=== PATIENT | female | born 1945 | race Caucasian/White ===

== ENCOUNTER → 2016-08-30 | Outpatient (CLI) | payer BC ==
[~2016-08-30] MED LIST: ASPI-435 PO; CETI10TA84 PO; CRS/10 PO; LISI-787 PO; LSN/10125 PO; MULT1CAP7 PO; OMEGCAP2 PO; PRLSR20 PO; SERT-234 PO
[2016-08-30 12:44] LABS: BASO % 0.4 %; BASO ABS # 0.04 K/uL (0-0.2); COMPLETE YES; EOS % 1.6 %; HEMATOCRIT 41.4 % (37-47); IG% 0.2 %; LYMPH % 18.9 %; LYMPH ABS # 2.11 K/uL (1.2-3.4); MEAN CELL VOLUME 96.5 fL (80-100); MEAN CORPUSCULAR HEMOGLOBIN 32.2 pg (25-34); MEAN CORPUSCULAR HGB CONC 33.3 g/dl (32-36); MONO % 6.9 %; PLATELET COUNT 291 K/uL (130-400); RED BLOOD COUNT 4.29 M/uL (4.2-5.4); WHITE BLOOD COUNT 11.16 K/uL (4.8-10.8)
[2016-08-30 13:05] LABS: ALT/SGPT 17 U/L (12-78); AST/SGOT 15 U/L (15-37); BLOOD UREA NITROGEN 17 mg/dl (7-18); CARBON DIOXIDE 25 mmol/L (21-32); CHLORIDE 107 mmol/L (98-107); GLUCOSE 102 mg/dl (70-99); POTASSIUM 4.2 mmol/L (3.5-5.1); SODIUM 141 mmol/L (136-145)
[2016-08-30 13:06] LABS: ESTIMATED AVERAGE GLUCOSE 137 mg/dl; HA1C FLAG Normal (Normal)
[2016-08-30 13:16] LABS: ALB/GLOB RATIO 0.9 (0.9-2); ALKALINE PHOSPHATASE 75 U/L (45-117)
--- NOTE | 2016-09-03 09:30 | CODING QUERY MEDICAL NECESSITY ---
SUPPORTING DIAGNOSIS NEEDED Dr. Lebron, A supporting diagnosis is required for the test/procedure performed on this patient in order for us to be reimbursed by the patient's insurance. Please provide a supporting diagnosis for the following test/procedure listed below next to the test name along with your signature. *If there is no additional diagnosis for this patient that would support the following test/procedure please document that below next to the test/procedure. Test(s)/Procedure(s) that require a supporting diagnosis: * [id number] GLYCATED HEMOGLOBIN DIAGNOSIS: DATE OF SERVICE: 08/30/16 Provider Signature: Date: Thank you Adriano Wiggins [facility] Information Management Once completed, please kindly fax back to [phone] For questions please call [phone]
== END | disposition home or self-care (01) ==
LOC: C.LAB 10:21
PROVIDERS: ATTEND Internal Medicine
DX: F32.9 Major depressive disorder, single episode, unspecified (principal); R26.9 Unspecified abnormalities of gait and mobility; L28.0 Lichen simplex chronicus; G31.84 Mild cognitive impairment of uncertain or unknown etiology; E11.9 Type 2 diabetes mellitus without complications

== ENCOUNTER → 2016-08-31 | Outpatient (CLI) | payer BC ==
--- NOTE | 2016-08-31 11:48 | DIAGNOSTIC IMAGING REPORT ---
MRI OF THE BRAIN WITHOUT CONTRAST CLINICAL HISTORY: Left hemiplegia. Mild cognitive impairment. COMPARISON STUDY: MRI of the brain January 23, 2013. TECHNIQUE: Utilizing a 1.5 Mansi magnet and dedicated coil, multiplanar, multiecho imaging of the brain was performed without IV contrast. FINDINGS: There are no areas of restricted diffusion. No acute intracranial hemorrhage, midline shift or mass effect is present. Mild age-appropriate atrophy is noted. Basilar cisterns are patent. There are no extra axial collections. Scattered white matter T2 hyperintense foci have minimally increased since prior exam and suggest small vessel disease. No intracranial masses are identified on this unenhanced examination. Calvarial signal is normal. A 2.2 x 1.3 cm right parotid gland lesion is similar to prior exam of January 23, 2013. This lesion is T1 and T2 hypointense. Orbits and sinuses are unremarkable. IMPRESSION: 1. No acute intracranial findings. 2. Mild atrophy and moderate small vessel disease. 3. No change in a 2.2 cm right parotid gland lesion since MRI of January 23, 2013. Electronically signed by: Aakash Momin M.D. 08/31/2016 11:46 AM Dictated Date/Time: 08/31/2016 11:41 AM
== END | disposition home or self-care (01) ==
LOC: C.MRIBC 10:48
PROVIDERS: ATTEND Psychiatry & Neurology Neurology
DX: G31.84 Mild cognitive impairment of uncertain or unknown etiology (principal); G81.94 Hemiplegia, unspecified affecting left nondominant side

== ENCOUNTER 2016-12-21 03:16 | Emergency (ER) | payer BC ==
[~2016-12-21] VITALS: Ht 157.5 cm; Wt 65.0 kg
[~2016-12-21 03:16] MED LIST changes: -LISI-787 PO
[2016-12-21 03:23] VITALS: TEMP 36.7; Ht 157.5 cm; Wt 65.0 kg
[2016-12-21] MEDS ORDERED: LIDOCAINE/EPINEPHRINE 1% 20 ML VIAL INFIL ONE (04:00)
--- NOTE | 2016-12-21 05:50 | EMERGENCY ROOM VISIT NOTE ---
History First contact with patient: 03:28 Chief Complaint: FALL Stated Complaint: FALL/HEAD INJURY History of Present Illness The patient is a 71 year old female who presents to the Emergency Room with complaints of a head injury. The patient states that she woke up approximately 2 hours ago and was walking to the bathroom when she tripped over a dog gate and fell backward, striking her head on the corner of a wall. She called 911 due to a significant amount of bleeding. She reports a mild headache rated 1/ 10. There was no loss of consciousness. She denies any nausea/vomiting, numbness, weakness, confusion, blurred vision or slurred speech. Her tetanus is up-to-date. Review of Systems A complete 10 point review of systems was reviewed with the patient with pertinent positives and negatives as per history of present illness. All else were negative. Family History No pertinent family history Social History Smoking Status: Never Smoker Drug Use: none Marital Status: Housing Status: lives with family Occupation Status: retired Current/Historical Medications Scheduled Aspirin (Aspirin 81), 81 MG PO DAILY Cetirizine (Zyrtec), 10 MG PO DAILY Lisinopril/Hctz (Zestoretic 20MG/12.5MG), 1 TAB PO DAILY Multiple Vitamins W/ Minerals (Multi For Her 50+), 1 CAP PO DAILY [place]-3 Fatty Acids (Fish Oil), 1 CAP PO DAILY Omeprazole (Prilosec), 20 MG PO DAILY Rosuvastatin Calcium (Crestor), 10 MG PO DAILY Sertraline (Zoloft), 150 MG PO DAILY Physical Exam Vital Signs Date Time Temp Pulse Resp B/P (MAP) Pulse Ox O2 Delivery O2 Flow Rate FiO2 12/21/16 06:08 88 20 112/74 99 12/21/16 04:34 91 20 119/70 93 Room Air 12/21/16 03:23 36.7 96 20 131/75 92 Room Air Physical Exam VITALS: Vitals are noted on the nurse's note and reviewed by myself. Vital signs stable. GENERAL: This is a 31-year-old female, in no acute distress, nondiaphoretic, well-developed well-nourished. SKIN: There is a 3 cm laceration to the right occipital region of the scalp. There is no active bleeding. HEAD: Scalp laceration as described above. Normocephalic atraumatic. EARS: External auditory canals clear, tympanic membranes pearly diaz without erythema or effusion bilaterally. No hemotympanum. EYES: Pupils equal round and reactive to light and accommodation. Extraocular movements intact. NECK: Supple without nuchal rigidity. Cervical spine is nontender. HEART: Regular rate and rhythm without murmurs gallops or rubs. LUNGS: Clear to auscultation bilaterally without wheezes, rales or rhonchi. MUSCULOSKELETAL: No deformities. Full range of motion throughout. NEURO: Patient was alert and oriented to person place and time. Normal sensation to light and sharp touch. No focal neurological deficits. Medical Decision & Procedures ER Provider Diagnostic Interpretation: CT HEAD: No intracranial hemorrhage, mass effect or calvarial fracture Ventricles are within limits and midline Volume loss, atrophy Visualized paranasal sinuses, mastoid and orbits are within limits CT C SPINE: No fracture or malalignment Multilevel spondylosis/discogenic change Pulmonary emphysema visualized apices Radiologist: Beck Kern MD Procedure Verbal consent was obtained prior to performing the procedure. 4 cc of lidocaine with epinephrine was used to anesthetize the scalp laceration. The wound was cleansed and prepped in the typical sterile fashion utilizing normal saline and Betadine. The wound was sterilely draped. The wound was copiously irrigated with normal saline and Betadine. The wound was closed using 3 kacy with the wound edges being well approximated. Patient tolerated the procedure well. No complications were met. ED Course The patient was evaluated as above. CT of the head and C spine were performed and read by radiology as above. Laceration repair was performed as noted above. Discharge instructions were reviewed with the patient. The patient verbalized understanding of my assessment and treatment plan and was discharged home in good condition. Medical Decision Differential diagnosis includes laceration, contusion, intracranial hemorrhage, concussion, among others. The patient is a 71-year-old female who presents today for evaluation of a mechanical fall. Neuro exam is unremarkable. Patient has no concerning symptoms. CT of the head and C-spine were performed and show no acute findings. Scalp laceration was repaired. Staple care instructions were discussed with the patient. She will follow-up with her primary care provider this week. She verbalized understanding and was discharged home in good condition. Medication Reconcilliation Current Medication List: was personally reviewed by [place] Blood Pressure Screening Patient's blood pressure: Normal blood pressure Impression Primary Impression: Head injury Additional Impressions: Fall Scalp laceration Departure Information Dispostion Home / Self-Care Condition GOOD Referrals William Lebron M.D. (PCP) Patient Instructions [facility] Additional Instructions You have received 3 kacy on your scalp. These kacy are NOT dissolvable and WILL need to be removed by a health care provider in 10 days. You can return to the Emergency Department or contact your Primary Care Provider to have these kacy removed. Proper wound care is essential for adequate wound healing and infection prevention. You can shower and clean the wound with soap and water. Do scour over the wound, pat dry with a towel. Do not submerse the wound until the kacy have been removed. You can use an antibiotic ointment with a dressing over the wound for the next 3-4 days. After this time you may leave the wound dry and open to the air. If crust develops over the wound you can use a Q-tip to apply a 1:1 peroxide:water solution to clean the wound. Look for signs of infection of the wound including: increased pain, swelling, foul discharge, streaking, or increased temperature. If any of these are noticed you should return to the Emergency Department for further assessment and treatment. As with any laceration you may have received nerve damage to the surrounding tissues. This damage may or may not be permanent. For pain control, you can use the following tgob-uia-cuczugy medicines (if >12 yo): - Regular strength (325mg/tab) Tylenol (acetaminophen) 2 tabs every 4-6 hours as needed. Do not exceed 12 tablets in a 24 hour period. Avoid taking more than 4 grams (4000 mg) of Tylenol per day. This includes any other sources of acetaminophen you may take on a regular basis. - Regular strength (200 mg/tab) Advil (ibuprofen) 1-2 tabs every 4-6 hours as needed. Do not exceed a dose of 3200 mg per day. Return to the emergency department if your symptoms worsen despite treatment course outlined above. Problem Qualifiers Primary Impression: Head injury Encounter type: initial encounter Qualified Codes: S09.90XA - Unspecified injury of head, initial encounter Additional Impressions: Fall Encounter type: initial encounter Qualified Codes: W19.XXXA - Unspecified fall, initial encounter Scalp laceration Encounter type: initial encounter Qualified Codes: S01.01XA - Laceration without foreign body of scalp, initial encounter
[2016-12-21] MEDS ORDERED: LISI-787 PO (05:56)
[2016-12-21 06:08] VITALS: BP 112/74; PULSE 88; O2SAT 99
--- NOTE | 2016-12-21 06:15 | DIAGNOSTIC IMAGING REPORT ---
HEAD WITHOUT CONTRAST (CT) CT DOSE: HISTORY: Trauma. Mental status change. head injury TECHNIQUE: Multiaxial CT images of the head were performed without the use of intravenous contrast. A dose lowering technique was utilized adhering to the principles of ALARA. Comparison: None. Findings: The paranasal sinuses and mastoid air cells are clear. The calvarium and skull base are intact. The ventricles and sulci are within normal limits. There is no mass, hematoma, midline shift, or acute infarct. Impression: No acute intracranial abnormality. The above report was generated using voice recognition software. It may contain grammatical, syntax or spelling errors. Electronically signed by: Terry Lawton M.D. 12/21/2016 6:14 AM Dictated Date/Time: 12/21/2016 6:13 AM
--- NOTE | 2016-12-21 06:17 | DIAGNOSTIC IMAGING REPORT ---
CERVICAL SPINE W/O CT DOSE: 947.06 mGy.cm HISTORY: Trauma. Pain. head injury TECHNIQUE: Multiaxial CT images of the cervical spine were performed and reformatted in the sagittal and coronal plane without the use of contrast. A dose lowering technique was utilized adhering to the principles of ALARA. COMPARISON: None. FINDINGS: Moderate multilevel degenerative disc changes throughout. Vertebral body stature is unremarkable. No evidence for compression deformity. Anterior and to a lesser extent posterior osteophytic changes throughout. Degenerative changes C1-C2 complex. Prevertebral soft tissues are unremarkable. IMPRESSION: No fractures within the cervical spine. Moderate degenerative change. The above report was generated using voice recognition software. It may contain grammatical, syntax or spelling errors. Electronically signed by: Terry Lawton M.D. 12/21/2016 6:16 AM Dictated Date/Time: 12/21/2016 6:14 AM
== END 2016-12-21 06:10 | disposition home or self-care (01) ==
LOC: EDBD 03:16 → C.EDB 03:17
DX: S01.01XA Laceration without foreign body of scalp, initial encounter (principal); W18.09XA Striking against other object with subsequent fall, initial encounter; Z79.82 Long term (current) use of aspirin; Z79.899 Other long term (current) drug therapy

== ENCOUNTER → 2017-01-20 | Outpatient (CLI) | payer BC ==
[~2017-01-20] MED LIST changes: +LISI-787 PO; -LSN/10125 PO
--- NOTE | 2017-01-20 10:59 | DIAGNOSTIC IMAGING REPORT ---
L HIP UNILATERAL 2 VIEWS CLINICAL HISTORY: R26.9 Abnormality of gait and [id number] pain COMPARISON: None. DISCUSSION: Moderate degenerative narrowing left hip joint space. Moderate degenerative sclerosis of the acetabular margins. Calcific components at the greater trochanter of the left hip consistent with calcific trochanteric bursitis. There is no evidence for fracture or dislocation. No evidence for acetabular protrusion. There is no evidence for soft tissue swelling. IMPRESSION: Moderate to rather significant degenerative change left hip. Calcific trochanteric bursitis. The above report was generated using voice recognition software. It may contain grammatical, syntax or spelling errors. Electronically signed by: Terry Lawton M.D. 01/20/2017 10:58 AM Dictated Date/Time: 01/20/2017 10:57 AM
--- NOTE | 2017-01-20 11:00 | DIAGNOSTIC IMAGING REPORT ---
LEFT KNEE 2 VIEWS CLINICAL HISTORY: Gait abnormality. Fall with left knee pain. FINDINGS: AP and lateral views of the left knee are obtained. No prior studies are available for comparison at the time of dictation. The skeletal structures are osteopenic. No fracture is seen. There is mild tricompartmental degenerative joint space narrowing, greatest at the patellofemoral articulation. There is a large patellar enthesophyte. No joint effusion is seen. Mild prepatellar soft tissue swelling is noted. Large venous varicosities are present within the medial soft tissues. There is advanced after carotid calcification of the popliteal artery. IMPRESSION: Osteopenia and mild degenerative change as above. No acute bony abnormality is identified. Electronically signed by: Cal Dhillon M.D. 01/20/2017 10:59 AM Dictated Date/Time: 01/20/2017 10:57 AM
--- NOTE | 2017-01-20 11:02 | DIAGNOSTIC IMAGING REPORT ---
L SHOULDER MIN 2 VIEWS ROUTINE CLINICAL HISTORY: R29.6 Repeated [id number] trauma. Pain. COMPARISON: None. DISCUSSION: Generalized degenerative change of the left shoulder. This includes glenohumeral as well as acromioclavicular joints. No evidence for fracture. There is no evidence for soft tissue swelling. IMPRESSION: Generalized degenerative change. No acute bony abnormality. The above report was generated using voice recognition software. It may contain grammatical, syntax or spelling errors. Electronically signed by: Terry Lawton M.D. 01/20/2017 11:00 AM Dictated Date/Time: 01/20/2017 10:58 AM
--- NOTE | 2017-01-20 12:08 | DIAGNOSTIC IMAGING REPORT ---
CAROTID DOPPLER NECK ART HISTORY: Mental status change E78.5 [id number] Abnormality of gait and libwnmagP02.9 COMPARISON: 05/17/2014 TECHNIQUE: Real-time, grayscale, and color Doppler sonography of the carotid arteries was performed. Imaging reviewed in the transverse and longitudinal planes. All measurements were calculated based on NASCET criteria. FINDINGS: Antegrade flow is seen in the bilateral vertebral arteries. The brachial pressures are hemodynamically similar. Moderate plaque formation bilaterally The peak systolic velocity within the right ICA is 45. The right systolic ratio is 1.2. The peak systolic velocity within the left ICA is 53. The left systolic ratio is 1.0. IMPRESSION: No hemodynamically significant stenosis seen within the carotid arteries. Moderate plaque formation bilaterally The above report was generated using voice recognition software. It may contain grammatical, syntax or spelling errors. Electronically signed by: Terry Lawton M.D. 01/20/2017 12:06 PM Dictated Date/Time: 01/20/2017 12:05 PM
== END | disposition home or self-care (01) ==
LOC: C.ULTRBC 10:24
PROVIDERS: ATTEND Physician Assistant Medical
DX: R26.9 Unspecified abnormalities of gait and mobility (principal); E78.5 Hyperlipidemia, unspecified; G81.94 Hemiplegia, unspecified affecting left nondominant side; G31.84 Mild cognitive impairment of uncertain or unknown etiology; E11.9 Type 2 diabetes mellitus without complications; R29.6 Repeated falls; M85.862 Other specified disorders of bone density and structure, left lower leg; M70.62 Trochanteric bursitis, left hip

== ENCOUNTER → 2017-03-02 | Outpatient (CLI) | payer BC ==
[2017-03-02 12:23] LABS: BASO % 0.3 %; BASO ABS # 0.04 K/uL (0-0.2); COMPLETE YES; EOS % 3.1 %; HEMATOCRIT 38.5 % (37-47); IG% 0.3 %; LYMPH % 17.5 %; LYMPH ABS # 2.09 K/uL (1.2-3.4); MEAN CELL VOLUME 95.1 fL (80-100); MEAN CORPUSCULAR HEMOGLOBIN 30.1 pg (25-34); MEAN CORPUSCULAR HGB CONC 31.7 g/dl (32-36); MEAN PLATELET VOLUME 9.6 fL (7.4-10.4); MONO % 6.2 %; NEUT % 72.6 %; PLATELET COUNT 387 K/uL (130-400); RED BLOOD COUNT 4.05 M/uL (4.2-5.4); WHITE BLOOD COUNT 11.97 K/uL (4.8-10.8)
[2017-03-02 12:49] LABS: ESTIMATED AVERAGE GLUCOSE 140 mg/dl; HA1C FLAG Normal (Normal)
[2017-03-02 13:13] LABS: BLOOD UREA NITROGEN 13 mg/dl (7-18); BUN/CREATININE RATIO 14.2 (10-20); CALCIUM 9.1 mg/dl (8.5-10.1); CARBON DIOXIDE 25 mmol/L (21-32); CHLORIDE 104 mmol/L (98-107); CHOLESTEROL 183 mg/dl (0-200); CREATININE 0.94 mg/dl (0.60-1.20); GLUCOSE 99 mg/dl (70-99); SODIUM 134 mmol/L (136-145)
[2017-03-02 13:24] LABS: ALB/GLOB RATIO 0.6 (0.9-2); ALKALINE PHOSPHATASE 83 U/L (45-117); ALT/SGPT 14 U/L (12-78); AST/SGOT 11 U/L (15-37); CHOLESTEROL/HDL RATIO 3.6; HDL CHOLESTEROL 51 mg/dl; LDL CHOLESTEROL CALCULATED 93 mg/dl; TRIGLYCERIDES 195 mg/dl (0-150); VERY LOW DENSITY LIPOPROT CALC 39 mg/dl
== END | disposition home or self-care (01) ==
LOC: C.LAB 10:07
PROVIDERS: ATTEND Internal Medicine
DX: I10 Essential (primary) hypertension (principal); J44.9 Chronic obstructive pulmonary disease, unspecified; E11.9 Type 2 diabetes mellitus without complications; R53.82 Chronic fatigue, unspecified; E78.5 Hyperlipidemia, unspecified; G62.9 Polyneuropathy, unspecified; F17.200 Nicotine dependence, unspecified, uncomplicated